=== PATIENT | female | born 1980 | race Caucasian/White ===

== ENCOUNTER → 2017-07-29 | Outpatient (CLI) | payer BC ==
[~2017-07-29] MED LIST: AUGMENTIN PO; VICODIN 5/500 T1 TAB PO
--- NOTE | ~2017-07-29 | CT113 ---
[facility] A Service of [facility] RADIOLOGY TEXT RESULTS PATIENT: RADHA JIMENEZ LOCATION: [facility] : 80 UNIT #: [id number] AGE: [address]: Hira Calle MD SEX: F ORDER DR: [id number] [facility]. [place], [place] [address] [id number] O MR#: [id number] Acc #: [id number] NAME: RADHA JIMENEZ : 1980 SEX: F STUDY DATE/TIME: 07/29/2017 7:55 UNIT: [facility] ROOM: STUDY DESCRIPTION: CT Sinuses Wo Contrast Attending Physician: Hira Calle M.D. Referring Physician: Hira Calle M.D. Ordering Physician: Hira Calle M.D. Primary Care Physician: No Primary Care Physician MEDICAL IMAGING REPORT This report is preliminary unless electronic signature is present EXAM CT scan of the sinuses without contrast. HISTORY Nasal polyps with chronic sinusitis for 5 years and chronic drainage. TECHNIQUE Axial 2 mm images were obtained through the sinuses and coronal and sagittal reconstructions were generated. This CT exam was performed with one or more of the following radiation dose reduction techniques: automatic exposure control, adjustment of mA and/or kV according to patient size, and iterative reconstruction. FINDINGS The sphenoid, ethmoid, frontal and maxillary sinuses are clear except for minimal mucosal thickening in the right maxillary sinus. The nasal turbinates appear normal. No significant septal deviations identified. The ostiomeatal complex is patent on the left. It is difficult to clearly see it on the right and it may be slightly attenuated by a bony septum. IMPRESSION 1. No obvious polyps or mucous retention cysts are identified. 2. Sinuses are clear except for some minimal mucosal thickening in the right maxillary sinus and I believe there is a small bony septum in the right maxillary sinus that is narrowing the right ostiomeatal complex. 3. Otherwise, normal. Dictated by... [facility] A Service [facility] RADIOLOGY TEXT RESULTS PATIENT: RAD[facility]IMENEZ [id number] [birth year] UNIT #: [id number] AGE: [address]: Hira Calle MD SEX: F ORDER DR: Nhan Jeronimo M.D. THIS IS AN ELECTRONICALLY VERIFIED REPORT Nhan Jeronimo M.D. at 07/30/2017 1:58 PM ANGELIQUE/ashleigh TD: 07/30/2017 05:06 JOB #: [id number] MEDICAL IMAGING REPORT Page 1 of 1 COPY
== END | disposition home or self-care (01) ==
LOC: CCAT 07:21
DX: J33.9 Nasal polyp, unspecified (principal); J32.9 Chronic sinusitis, unspecified; J34.89 Other specified disorders of nose and nasal sinuses
CPT/HCPCS: 70486